=== PATIENT | female | born 1980 | race Caucasian/White ===

== ENCOUNTER → 2016-07-08 | Outpatient (CLI) | payer OTHER ==
--- NOTE | 2016-07-08 13:56 | REP ---
TRANSVAGINAL PELVIC ULTRASOUND WITH SONOHYSTEROGRAPHY: Transvaginal pelvic ultrasound performed. The uterus measures 7.8 x 5.4 x 5.7 cm. Endometrial stripe measures 5 mm. Posterior intramural fibroid measures 3.4 x 3.8 x 3.3 cm. Right ovary measures 3.1 x 1.7 x 2.3 cm and left ovary 3.0 x 2.5 x 2.6 cm. There is no adnexal mass or free fluid. There is blood flow seen in each ovary with duplex Doppler evaluation, with no torsion. RI of the right ovary 0.45 and left ovary 0.68. Cervix was catheterized and Dr. Calderon injected 120 mL of saline into the endometrial cavity. Ultrasound images were performed and demonstrate no evidence of endometrial polyp. The posterior fibroid does not protrude into the endometrial cavity. IMPRESSION: Posterior endometrial fibroid. No endometrial polyp. Signed by Denzel Whalen MD 07/08/2016 03:23 P
== END | disposition home or self-care (01) ==
LOC: M RADPRO 11:22
PROVIDERS: ATTEND Obstetrics & Gynecology
DX: D25.9 Leiomyoma of uterus, unspecified (principal)

== ENCOUNTER 2016-08-20 21:48 | Emergency (ER) | payer OTHER ==
[2016-08-20 22:22] LABS: MEAN CORPUSCULAR HEMOGLOBIN 32.6 pg (27.0-33.0); MEAN CORPUSCULAR HGB CONC 34.9 g/dl (32.0-36.5); MEAN CORPUSCULAR VOLUME 93.2 fl (80.0-96.0); RED CELL DISTRIBUTION WIDTH 11.7 % (11.5-14.5); WHITE BLOOD COUNT 10.5 K/mm3 (4.0-10.0)
[2016-08-20 22:33] LABS: INR 1.04
[2016-08-20 22:38] LABS: CONTROL LINE HCG INT CTR LINE PRESENT
--- NOTE | 2016-08-20 23:33 | EDDOCDS ---
Nurse's Notes [facility] Name: Sandi Urban Age: 36 yrs Sex: Female : 1980 Arrival Date: 08/20/2016 Time: 21:48 Bed PR1 / Private MD: Other - Complete Info On Cds Diagnosis: Dysmenorrhea, unspecified;Other abnormal uterine and vaginal bleeding Presentation: 08/20 21:54 Presenting complaint: Patient states: she is having vaginal bleeding started period cz yesterday heavy bleeding today with clots also having nausea and vomiting. Risk factors: The patient reports no loss of conciousness prior to arrival. This patient has not had a hysterectomy. This patient has not begun menopause. Adult Sepsis Screening: The patient does not have new or worsening altered mentation. Patient's respiratory rate is less than 22. Systolic blood pressure is greater than 100. Patient has a qSOFA score of 0- Negative Sepsis Screen. Suicide/Homicide risk assessment- the patient denies having any suicidal and/or homicidal ideations and does not present with any other emotional, behavioral or mental health complaints. Status: The patient is a dependent. Transition of care: patient was not received from another setting of care. 21:54 Acuity: BEV Level 3 cz 21:54 Method Of Arrival: Walkin/Carried/Asstd cz Triage Assessment: 21:56 General: Appears in no apparent distress. Pain: Location: pelvis Pain currently is 2 cz out of 10 on a pain scale. HIV screening NA for this visit Offered previously. 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 Vitamin Oral tab 1 tab once daily 2. Zoloft Oral 3. aspirin 81 mg Oral tab - PMHx: uterine fibroids; - PSHx: Tonsillectomy; D & C; - Social history: Smoking status: Patient uses tobacco products, light tobacco smoker. No barriers to communication noted, The patient speaks fluent Yoruba, Speaks appropriately for age. - Family history: Not pertinent. - : The pt / caregiver states he / she is not on anticoagulants. Home medication list is obtained from the patient. - Exposure Risk Screening:: None identified. Screenin:30 Screening information is obtained from the patient. Fall risk: No risks identified. ld5 Assistance ADL's: requires no assistance with activities of daily living. Abuse/DV Screen: The patient / caregiver reports he/she is: not in a situation that causes fear, pain or injury. Nutritional screening: No deficits noted. Advance Directives: Currently, there is no health care proxy. home support is adequate. Assessment: 23:30 General: Appears in no apparent distress, Behavior is cooperative. Pain: Location: ld5 suprapubic area Pain currently is 3 out of 10 on a pain scale. Neurological: Level of Consciousness is awake, alert. Respiratory: Airway is patent Respiratory effort is even, unlabored. GI: Denies nausea, vomiting. : Reports vaginal bleeding that is bright red heavy flow. Derm: Skin is intact, Skin is dry. Vital Signs: 21:50 BP 138 / 84; Pulse 100; Resp 18 S; Temp 97.6(O); Pulse Ox 99% on R/A; Weight 86.18 kg gr2 (R); Height 5 ft. 0 in. (152.40 cm) (R); Pain 3/10; 23:30 BP 135 / 71; Pulse 92; Resp 16; Temp 98.1; Pulse Ox 100% on R/A; ld5 21:50 Body Mass Index 37.11 (86.18 kg, 152.40 cm) gr2 Vitals: 21:50 Log In Time: August 20, 2016 at 21:50. gr2 ED Course: 21:49 Patient visited by Jhon Rain. gr2 21:49 Patient moved to Waiting gr2 21:50 Other - Complete Info On Cds is Private Physician. gr2 21:51 Patient visited by Jhon Rain. gr2 21:51 Patient moved to Pre RCE gr2 21:55 Triage Initiated cz 21:57 Patient moved to Triage 3 cz 22:03 [facility] ke 22:03 Patient visited by Bandar Lauren FNP. ke 22:03 Patient visited by Bandar Lauren FNP. ke 22:16 Patient moved to TR2 cz 22:19 PENDING SALE TO [facility] Payment Agreement was scanned into [employer] and attached to record. gjb 22:38 Patient visited by Bandar Lauren FNP. ke 23:17 Shelly Garza MD is Referral Physician. ke 23:25 Patient moved to PR1 / 25 cz 23:30 The patient / caregiver is instructed regarding the plan of care and ED course. Patient ld5 has correct armband on for positive identification. 23:30 No IV's were initiated during this patient's visit. No procedures done that require ld5 assistance. 23:32 Patient visited by Marcia Carvalho RN. ld5 Order Results: Lab Order: HCG,Serum Qualitative; [facility] 08/20/16 22:16 Test: HCG, SERUM QUALITATIVE; Value: NEGATIVE; Range: NEGATIVE; Status: F Lab Order: CBC; [facility] 08/20/16 22:16 Test: WHITE BLOOD COUNT; Value: 10.5; Range: 4.0-10.0; Abnormal: Above high normal; Units: K/mm3; Status: F Test: RED BLOOD COUNT; Value: 3.96; Range: 4.00-5.40; Abnormal: Below low normal; Units: M/mm3; Status: F Test: HEMOGLOBIN; Value: 12.9; Range: 12.0-16.0; Units: g/dl; Status: F Test: HEMATOCRIT; Value: 36.9; Range: 36.0-47.0; Units: %; Status: F Test: MEAN CORPUSCULAR VOLUME; Value: 93.2; Range: 80.0-96.0; Units: fl; Status: F Test: MEAN CORPUSCULAR HEMOGLOBIN; Value: 32.6; Range: 27.0-33.0; Units: pg; Status: F Test: MEAN CORPUSCULAR HGB CONC; Value: 34.9; Range: 32.0-36.5; Units: g/dl; Status: F Test: RED CELL DISTRIBUTION WIDTH; Value: 11.7; Range: 11.5-14.5; Units: %; Status: F Test: PLATELET COUNT, AUTOMATED; Value: 416; Range: 150-450; Units: k/mm3; Status: F Lab Order: PT/INR; [facility] 08/20/16 22:16 Test: PROTHROMBIN TIME; Value: 13.7; Range: 12.3-14.5; Units: SECONDS; Status: F Test: INR; Value: 1.04; Status: F Test Note: ; THERAPUTIC HUMAN INR VALUES INDICATIONS NORMAL RANGES PROPHYLAXIS/TREATMENT OF: VENOUS THROMBOSIS 2.0-3.0 PULMONARY EMBOLISM 2.0-3.0 PREVENTION OF SYSTEMIC EMBOLISM FROM: TISSUE HEART VALVES 2.0-3.0 ACUTE MYOCARDIAL INFARCTION 2.0-3.0 VALVULAR HEART DISEASE 2.0-3.0 ATRIAL FIBRILLATION 2.0-3.0 MECHANICAL VALVES(HIGH RISK) 2.5-3.5 RECURRENT MYOCARDIAL INFARCTION 2.5-3.5 Outcome: 23:19 Discharge ordered by Provider. karl 23:30 Discharge Assessment: Patient awake, alert and oriented x 3. No cognitive and/or ld5 functional deficits noted. Patient verbalized understanding of disposition instructions. patient administered narcotics - no. The following High Risk Discharge criteria are identified: None. Discharged to home ambulatory, with significant other. Condition: stable. Discharge instructions given to patient, Instructed on discharge instructions, follow up and referral plans. medication usage, no driving heavy equipment, Demonstrated understanding of instructions, medications, Pt was receptive of discharge instructions/ teaching. Prescriptions given X 1. No special radiology studies were completed. Property :Personal belongings accompany Pt. 23:32 Patient left the ED. ld5 Signatures: Parkash aRy, RN RN Bandar Branch, PUBLIC FINANCE SPECIALIST PUBLIC FINANCE SPECIALIST Marcia Falcon RN RN ld5 Jhon Rain 2 Jeanette Quigley BINU
--- NOTE | 2016-08-20 23:33 | EDDOCDS ---
Physician Documentation [facility] Name: Sandi Urban Age: 36 yrs Sex: Female : 1980 Arrival Date: 08/20/2016 Time: 21:48 Bed PR Private MD: Other - Complete Info On Cds Disposition: 08/20 23:20 A printed prescription for a controlled substance(s) was [facility]. Disposition: 08/20/16 23:19 Discharged to Home/Self Care. Impression: Dysmenorrhea, unspecified, Other abnormal uterine and vaginal bleeding. - Condition is Stable. - Discharge Instructions: Metrorrhagia, Uterine Bleeding, Dysfunctional. - Prescriptions for Ultram 50 mg Oral Tablet - take 1 tablet by ORAL route every 6 hours As needed MDD: 4 tabs; 20 tablet. - Medication Reconciliation, Local Pharmacy Hours form. - Follow up: Shelly Garza MD; When: 2 - 3 days; Reason: Recheck today's complaints, Continuance of care. - Problem is an ongoing problem. - Symptoms are unchanged. Historical: - Home Meds: 1. Vitamin Oral tab 1 tab once daily 2. Zoloft Oral 3. aspirin 81 mg Oral tab - PMHx: uterine fibroids; - PSHx: Tonsillectomy; D & C; - Social history: Smoking status: Patient uses tobacco products, light tobacco smoker. No barriers to communication noted, The patient speaks fluent Monegasque, Speaks appropriately for age. - Family history: Not pertinent. - : The pt / caregiver states he / she is not on anticoagulants. Home medication list is obtained from the patient. - Exposure Risk Screening:: None identified. 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 0 in. (152.40 cm) (R); Pain 3/10; 23:30 BP 135 / 71; Pulse 92; Resp 16; Temp 98.1; Pulse Ox 100% on R/A; ld5 21:50 Body Mass Index 37.11 (86.18 kg, 152.40 cm) gr2 MDM: 22:10 HCG,Serum Qualitative Ordered. EDMS 22:10 CBC Ordered. EDMS 22:10 PT/INR Ordered. EDMS 22:17 Financial registration complete. gjb 22:19 [facility] Payment Agreement was scanned into [employer] and attached to record. gjb 23:15 CBC Reviewed. ke 23:15 HCG,Serum Qualitative Reviewed. ke 23:15 PT/INR Reviewed. ke Signatures: Dispatcher [employer] EDPrakash Watkins, RN RN Bandar Branch, BLOOD TESTER BLOOD TESTER Marcia FalconRN RN Jeanette Rider The chart was reviewed and I authenticate all verbal orders and agree with the evaluation and treatment provided.Attachments: 22:19 [facility] Payment Agreement gj MTDD
--- NOTE | 2016-08-23 00:33 | EDDOCDS ---
Physician Documentation [facility] Name: Sandi Urban Age: 36 yrs Sex: Female : 1980 Arrival Date: 08/20/2016 Time: 21:48 Bed PR Private MD: Other - Complete Info On Cds Disposition: 08/20 23:20 A printed prescription for a controlled substance(s) was [facility]. Disposition: 08/20/16 23:19 Discharged to Home/Self Care. Impression: Dysmenorrhea, unspecified, Other abnormal uterine and vaginal bleeding. - Condition is Stable. - Discharge Instructions: Metrorrhagia, Uterine Bleeding, Dysfunctional. - Prescriptions for Ultram 50 mg Oral Tablet - take 1 tablet by ORAL route every 6 hours As needed MDD: 4 tabs; 20 tablet. - Medication Reconciliation, Local Pharmacy Hours form. - Follow up: Shelly Garza MD; When: 2 - 3 days; Reason: Recheck today's complaints, Continuance of care. - Problem is an ongoing problem. - Symptoms are unchanged. Historical: - Home Meds: 1. Vitamin Oral tab 1 tab once daily 2. Zoloft Oral 3. aspirin 81 mg Oral tab - PMHx: uterine fibroids; - PSHx: Tonsillectomy; D & C; - Social history: Smoking status: Patient uses tobacco products, light tobacco smoker. No barriers to communication noted, The patient speaks fluent Kyrgyz, Speaks appropriately for age. - Family history: Not pertinent. - : The pt / caregiver states he / she is not on anticoagulants. Home medication list is obtained from the patient. - Exposure Risk Screening:: None identified. 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 0 in. (152.40 cm) (R); Pain 3/10; 23:30 BP 135 / 71; Pulse 92; Resp 16; Temp 98.1; Pulse Ox 100% on R/A; ld5 21:50 Body Mass Index 37.11 (86.18 kg, 152.40 cm) gr2 MDM: 22:10 HCG,Serum Qualitative Ordered. EDMS 22:10 CBC Ordered. EDMS 22:10 PT/INR Ordered. EDMS :17 Financial registration complete. gjb :19 [facility] Payment Agreement was scanned into [employer] and attached to record. gjb 23:15 CBC Reviewed. ke 23:15 HCG,Serum Qualitative Reviewed. ke 23:15 PT/INR Reviewed. ke 08/21 11:05 T-Sheet-- Draft Copy was scanned into [employer] and attached to record. gb Signatures: Dispatcher [employer] EDMS Prakash Ray, RN RN cz Verena Iabrra, Reg Reg Bandar Abad, CONCRETE CONVEYOR OPERATOR Marcia KeeRN RN ld5 Jeanette Quigley The chart was reviewed and I authenticate all verbal orders and agree with the evaluation and treatment provided.Attachments: 08/20 22:19 [facility] Payment Agreement [facility] 08/21 11:05 T-Sheet-- Draft Copy gb Chart Complete MTDD
--- NOTE | 2016-08-23 00:33 | EDDOCDS ---
Nurse's Notes [facility] Name: Sandi Urban Age: 36 yrs Sex: Female : 1980 Arrival Date: 08/20/2016 Time: 21:48 Bed PR1 / Private MD: Other - Complete Info On Cds Diagnosis: Dysmenorrhea, unspecified;Other abnormal uterine and vaginal bleeding Presentation: 08/20 21:54 Presenting complaint: Patient states: she is having vaginal bleeding started period cz yesterday heavy bleeding today with clots also having nausea and vomiting. Risk factors: The patient reports no loss of conciousness prior to arrival. This patient has not had a hysterectomy. This patient has not begun menopause. Adult Sepsis Screening: The patient does not have new or worsening altered mentation. Patient's respiratory rate is less than 22. Systolic blood pressure is greater than 100. Patient has a qSOFA score of 0- Negative Sepsis Screen. Suicide/Homicide risk assessment- the patient denies having any suicidal and/or homicidal ideations and does not present with any other emotional, behavioral or mental health complaints. Status: The patient is a dependent. Transition of care: patient was not received from another setting of care. 21:54 Acuity: BEV Level 3 cz 21:54 Method Of Arrival: Walkin/Carried/Asstd cz Triage Assessment: 21:56 General: Appears in no apparent distress. Pain: Location: pelvis Pain currently is 2 cz out of 10 on a pain scale. HIV screening NA for this visit Offered previously. 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 Vitamin Oral tab 1 tab once daily 2. Zoloft Oral 3. aspirin 81 mg Oral tab - PMHx: uterine fibroids; - PSHx: Tonsillectomy; D & C; - Social history: Smoking status: Patient uses tobacco products, light tobacco smoker. No barriers to communication noted, The patient speaks fluent Yoruba, Speaks appropriately for age. - Family history: Not pertinent. - : The pt / caregiver states he / she is not on anticoagulants. Home medication list is obtained from the patient. - Exposure Risk Screening:: None identified. Screenin:30 Screening information is obtained from the patient. Fall risk: No risks identified. ld5 Assistance ADL's: requires no assistance with activities of daily living. Abuse/DV Screen: The patient / caregiver reports he/she is: not in a situation that causes fear, pain or injury. Nutritional screening: No deficits noted. Advance Directives: Currently, there is no health care proxy. home support is adequate. Assessment: 23:30 General: Appears in no apparent distress, Behavior is cooperative. Pain: Location: ld5 suprapubic area Pain currently is 3 out of 10 on a pain scale. Neurological: Level of Consciousness is awake, alert. Respiratory: Airway is patent Respiratory effort is even, unlabored. GI: Denies nausea, vomiting. : Reports vaginal bleeding that is bright red heavy flow. Derm: Skin is intact, Skin is dry. Vital Signs: 21:50 BP 138 / 84; Pulse 100; Resp 18 S; Temp 97.6(O); Pulse Ox 99% on R/A; Weight 86.18 kg gr2 (R); Height 5 ft. 0 in. (152.40 cm) (R); Pain 3/10; 23:30 BP 135 / 71; Pulse 92; Resp 16; Temp 98.1; Pulse Ox 100% on R/A; ld5 21:50 Body Mass Index 37.11 (86.18 kg, 152.40 cm) gr2 Vitals: 21:50 Log In Time: August 20, 2016 at 21:50. gr2 ED Course: 21:49 Patient visited by Jhon Rain. gr2 21:49 Patient moved to Waiting gr2 21:50 Other - Complete Info On Cds is Private Physician. gr2 21:51 Patient visited by Jhon Rain. gr2 21:51 Patient moved to Pre RCE gr2 21:55 Triage Initiated cz 21:57 Patient moved to Triage 3 cz 22:03 Bnadar Lauren FNP [facility]. ke 22:03 Patient visited by Bandar Lauren FNP. ke 22:03 Patient visited by Bandar Lauren FNP. ke 22:16 Patient moved to TR2 cz 22:19 [facility] Payment Agreement was scanned into [employer] and attached to record. gjb 22:38 Patient visited by Bandar Lauren FNP. ke 23:17 Shelly Garza MD is Referral Physician. ke 23:25 Patient moved to PR1 / 25 cz 23:30 The patient / caregiver is instructed regarding the plan of care and ED course. Patient ld5 has correct armband on for positive identification. 23:30 No IV's were initiated during this patient's visit. No procedures done that require ld5 assistance. 23:32 Patient visited by Marcia Carvalho RN. ld5 08/21 11:05 T-Sheet-- Draft Copy was scanned into [employer] and attached to record. gb Order Results: Lab Order: HCG,Serum Qualitative; [facility] 08/20/16 22:16 Test: HCG, SERUM QUALITATIVE; Value: NEGATIVE; Range: NEGATIVE; Status: F Lab Order: CBC; [facility] 08/20/16 22:16 Test: WHITE BLOOD COUNT; Value: 10.5; Range: 4.0-10.0; Abnormal: Above high normal; Units: K/mm3; Status: F Test: RED BLOOD COUNT; Value: 3.96; Range: 4.00-5.40; Abnormal: Below low normal; Units: M/mm3; Status: F Test: HEMOGLOBIN; Value: 12.9; Range: 12.0-16.0; Units: g/dl; Status: F Test: HEMATOCRIT; Value: 36.9; Range: 36.0-47.0; Units: %; Status: F Test: MEAN CORPUSCULAR VOLUME; Value: 93.2; Range: 80.0-96.0; Units: fl; Status: F Test: MEAN CORPUSCULAR HEMOGLOBIN; Value: 32.6; Range: 27.0-33.0; Units: pg; Status: F Test: MEAN CORPUSCULAR HGB CONC; Value: 34.9; Range: 32.0-36.5; Units: g/dl; Status: F Test: RED CELL DISTRIBUTION WIDTH; Value: 11.7; Range: 11.5-14.5; Units: %; Status: F Test: PLATELET COUNT, AUTOMATED; Value: 416; Range: 150-450; Units: k/mm3; Status: F Lab Order: PT/INR; [facility] 08/20/16 22:16 Test: PROTHROMBIN TIME; Value: 13.7; Range: 12.3-14.5; Units: SECONDS; Status: F Test: INR; Value: 1.04; Status: F Test Note: ; THERAPUTIC HUMAN INR VALUES INDICATIONS NORMAL RANGES PROPHYLAXIS/TREATMENT OF: VENOUS THROMBOSIS 2.0-3.0 PULMONARY EMBOLISM 2.0-3.0 PREVENTION OF SYSTEMIC EMBOLISM FROM: TISSUE HEART VALVES 2.0-3.0 ACUTE MYOCARDIAL INFARCTION 2.0-3.0 VALVULAR HEART DISEASE 2.0-3.0 ATRIAL FIBRILLATION 2.0-3.0 MECHANICAL VALVES(HIGH RISK) 2.5-3.5 RECURRENT MYOCARDIAL INFARCTION 2.5-3.5 Outcome: 08/20 23:19 Discharge ordered by Provider. karl 23:30 Discharge Assessment: Patient awake, alert and oriented x 3. No cognitive and/or ld5 functional deficits noted. Patient verbalized understanding of disposition instructions. patient administered narcotics - no. The following High Risk Discharge criteria are identified: None. Discharged to home ambulatory, with significant other. Condition: stable. Discharge instructions given to patient, Instructed on discharge instructions, follow up and referral plans. medication usage, no driving heavy equipment, Demonstrated understanding of instructions, medications, Pt was receptive of discharge instructions/ teaching. Prescriptions given X 1. No special radiology studies were completed. Property :Personal belongings accompany Pt. 23:32 Patient left the ED. ld5 Signatures: Prakash Ray, RN RN cz Verena Ibarra, Dc Reg Bandar Abad, VISCOSE DEPARTMENT WORKER VISCOSE DEPARTMENT WORKER Marcia Falcon RN RN ld5 Jhon Rain gr2 Jeanette Quigley Chart Complete MTDD
--- NOTE | 2016-08-23 00:33 | EDDOCDS ---
Physician Documentation [facility] Name: Sandi Urban Age: 36 yrs Sex: Female : 1980 Arrival Date: 08/20/2016 Time: 21:48 Bed PR Private MD: Other - Complete Info On Cds Disposition: 08/20 23:20 A printed prescription for a controlled substance(s) was provided because [facility]. Disposition: 08/20/16 23:19 Discharged to Home/Self Care. Impression: Dysmenorrhea, unspecified, Other abnormal uterine and vaginal bleeding. - Condition is Stable. - Discharge Instructions: Metrorrhagia, Uterine Bleeding, Dysfunctional. - Prescriptions for Ultram 50 mg Oral Tablet - take 1 tablet by ORAL route every 6 hours As needed MDD: 4 tabs; 20 tablet. - Medication Reconciliation, Local Pharmacy Hours form. - Follow up: Shelly Garza MD; When: 2 - 3 days; Reason: Recheck today's complaints, Continuance of care. - Problem is an ongoing problem. - Symptoms are unchanged. Historical: - Home Meds: 1. Vitamin Oral tab 1 tab once daily 2. Zoloft Oral 3. aspirin 81 mg Oral tab - PMHx: uterine fibroids; - PSHx: Tonsillectomy; D & C; - Social history: Smoking status: Patient uses tobacco products, light tobacco smoker. No barriers to communication noted, The patient speaks fluent Vincentian, Speaks appropriately for age. - Family history: Not pertinent. - : The pt / caregiver states he / she is not on anticoagulants. Home medication list is obtained from the patient. - Exposure Risk Screening:: None identified. 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 0 in. (152.40 cm) (R); Pain 3/10; 23:30 BP 135 / 71; Pulse 92; Resp 16; Temp 98.1; Pulse Ox 100% on R/A; ld5 21:50 Body Mass Index 37.11 (86.18 kg, 152.40 cm) gr2 MDM: 22:10 HCG,Serum Qualitative Ordered. EDMS 22:10 CBC Ordered. EDMS 22:10 PT/INR Ordered. EDMS :17 Financial registration complete. gjb :19 [facility] Payment Agreement was scanned into [employer] and attached to record. gjb 23:15 CBC Reviewed. ke 23:15 HCG,Serum Qualitative Reviewed. ke 23:15 PT/INR Reviewed. ke 08/21 11:05 T-Sheet-- Draft Copy was scanned into [employer] and attached to record. gb Signatures: Dispatcher [employer] EDMS Prakash Ray, RN RN cz Verena Ibarra, Reg Reg Bandar Abad, DIRECTOR FINANCIAL SERVICES Marcia KeeRN RN ld5 Jenaette Quigley The chart was reviewed and I authenticate all verbal orders and agree with the evaluation and treatment provided.Attachments: 08/20 22:19 [facility] Payment Agreement [facility] 08/21 11:05 T-Sheet-- Draft Copy gb Chart Complete MTDD
== END 2016-08-20 23:32 | disposition home or self-care (01) ==
LOC: M ED 21:48
DX: N94.6 Dysmenorrhea, unspecified (principal); N92.0 Excessive and frequent menstruation with regular cycle; D25.9 Leiomyoma of uterus, unspecified; Z72.0 Tobacco use; Z79.82 Long term (current) use of aspirin; Z79.899 Other long term (current) drug therapy

== ENCOUNTER 2016-11-25 17:00 | Day surgery (SDC) | payer OTHER ==
[~2016-11-25] VITALS: Ht 152.4 cm; Wt 86.2 kg
[2016-11-25] MEDS ORDERED: PREN1PAK PO (17:09)
[2016-11-25] MEDS ORDERED: ZOLO100T PO (17:09)
[2016-11-25] MEDS ORDERED: ASPI1TAB PO (17:09)
[2016-11-25 19:06] LABS: MEAN CORPUSCULAR HEMOGLOBIN 33.1 pg (27.0-33.0); MEAN CORPUSCULAR HGB CONC 34.9 g/dl (32.0-36.5); MEAN CORPUSCULAR VOLUME 94.8 fl (80.0-96.0); RED CELL DISTRIBUTION WIDTH 12.6 % (11.5-14.5); WHITE BLOOD COUNT 12.6 K/mm3 (4.0-10.0)
[2016-11-25 19:18] LABS: CONTROL LINE HCG INT CTR LINE PRESENT
[2016-11-25 19:58] LABS: HCG, SERUM QUANTITATIVE 799 MIU/ML
--- NOTE | 2016-11-25 19:59 | REP ---
Clinical: Suspected miscarriage with increasing HCG levels. Technique: Transabdominal and transvaginal first trimester obstetrical ultrasound with color Doppler evaluation. Findings: Heterogeneous anteverted uterus measures 8.9 x 6.5 x 6.0 cm and includes a 4 cm posterior submucosal complex degenerating fibroid. There is no evidence for intrauterine . Moderate amount of complex, possibly hemorrhagic free fluid is identified in the pelvis. The bilateral ovaries are normal in vascularity without torsion. The right ovary measures 4.6 x 2.8 x 2.6 cm and includes a complex hemorrhagic cyst measuring 2.3 cm likely corpus luteum; RI = 0.55. The left ovary measures 3.3 x 2.3 x 1.5 cm; RI = 0.57. Adjacent to the left ovary is a 1.3 by 1.0 x 1.0 cm hyperechoic mass concerning for ectopic . Impression: 1. 1.3 cm hyperechoic mass adjacent to the left ovary along with complex possibly hemorrhagic free fluid in the pelvis and elevated HCG level highly suspicious for ectopic . 2. The bilateral ovaries are identified and demonstrate normal vascularity without torsion. 3. 4 cm degenerating posterior submucosal fibroid, and no evidence for intrauterine . Signed by Mal Walls MD 11/25/2016 07:51 P
[2016-11-25] MEDS ORDERED: NS 1,000 ML IV SCH (21:03)
[2016-11-25] MEDS ORDERED: BUPIVACAINE HCL 0.25% 30 ML VIAL As Ordered ONE (22:01)
[2016-11-25] MEDS ORDERED: ASPI81TAEC PO (22:11)
[2016-11-25] MEDS ORDERED: MULTTAB20 PO (22:11)
[2016-11-25] MEDS ORDERED: LIDOCAINE 2% INJ 100 MG/5 ML SDV (FOR ANES.) As Ordered ONE (22:12)
[2016-11-25] MEDS ORDERED: PROPOFOL 200 MG/20 ML VIAL As Ordered ONE (22:12)
[2016-11-25] MEDS ORDERED: ROCURONIUM BROMIDE 50 MG/5 ML VIAL As Ordered ONE (22:12)
[2016-11-25] MEDS ORDERED: SUCCINYLCHOLINE 100 MG/5 ML SYRINGE (J0330) As Ordered ONE (22:12)
[2016-11-25] MEDS ORDERED: MIDAZOLAM INJ 2 MG/2 ML VIAL (J2250) As Ordered ONE (22:17)
[2016-11-25] MEDS ORDERED: fentaNYL 100 MCG/2 ML INJECTION (J3010) As Ordered ONE ×3 (22:17→23:59)
[2016-11-25] MEDS ORDERED: NEOSTIGMINE 1MG/ML 5 ML SYRINGE (J2710) As Ordered ONE (22:53)
[2016-11-25] MEDS ORDERED: ONDANSETRON 4MG/2ML VIAL (J2405) As Ordered ONE (22:53)
[2016-11-25] MEDS ORDERED: GLYCOPYRROLATE INJ 0.2 MG/ML 2 ML VIAL As Ordered ONE (22:53)
[2016-11-25] MEDS ORDERED: METOCLOPRAMIDE INJ 10MG/2ML VIAL (J2765) As Ordered ONE (22:53)
[2016-11-25] MEDS ORDERED: SEVOFLURANE INHAL SOLN 250 ML BTL As Ordered ONE (23:06)
[2016-11-25] MEDS ORDERED: DESFLURANE 240 ML INHALANT As Ordered ONE (23:09)
[2016-11-25] MEDS ORDERED: KETOROLAC 60 MG/2 ML VIAL (J1885) As Ordered ONE (23:33)
[2016-11-25] MEDS: fentaNYL 100 MCG/2 ML INJECTION (J3010) IV PRN (23:57)
[2016-11-25] MEDS ORDERED: PERCOCET 5MG/325MG TAB As Ordered ONE (23:59)
[2016-11-26] MEDS: fentaNYL 100 MCG/2 ML INJECTION (J3010) IV PRN ×2 (00:05→00:11)
[2016-11-26] MEDS ORDERED: ONDANSETRON 4MG/2ML VIAL (J2405) IV PRN (00:15)
[2016-11-26] MEDS ORDERED: PERCOCET 5MG/325MG TAB PO PRN (00:15)
[2016-11-26] MEDS ORDERED: LR 1,000 ML IV SCH ×2 (00:15→02:30)
[2016-11-26] MEDS ORDERED: ONDANSETRON 4MG/2ML VIAL (J2405) As Ordered ONE (00:17)
[2016-11-26 00:45] VITALS: BP 124/72
[2016-11-26 01:15] VITALS: BP 112/71
[2016-11-26 02:15] VITALS: BP 106/55
== END 2016-11-26 07:40 | disposition home or self-care (01) ==
LOC: M ED 18:39 → M PED 11-26 00:59 → M OROP 11-26 03:05 → M ED 11-26 03:05 → M PED 11-26 03:11 → M OROP 11-26 07:40
PROVIDERS: ATTEND Obstetrics & Gynecology
DX: O00.10 Tubal pregnancy without intrauterine pregnancy (principal); F41.9 Anxiety disorder, unspecified; F32.9 Major depressive disorder, single episode, unspecified; Z79.82 Long term (current) use of aspirin
CPT/HCPCS: 59151; 76801; 76817; 84702; 84703; 85027; 86850; 86900; 86901; 88305; 93041; 94760; 99284; J0330; J1885; J2250; J2405; J2710; J2765; J3010

== ENCOUNTER 2016-11-29 14:02 | Emergency (ER) | payer OTHER ==
[~2016-11-29] VITALS: Ht 152.4 cm; Wt 86.2 kg
[~2016-11-29 14:02] MED LIST: ASPI1TAB PO; ASPI81TAEC PO; MULTTAB20 PO; PREN1PAK PO; ZOLO100T PO
[2016-11-29] MEDS ORDERED: OXYC1TAB23 PO (14:13)
[2016-11-29] MEDS ORDERED: IBUP600T26 PO (14:13)
[2016-11-29] MEDS ORDERED: MUCI1TAB18 PO (14:13)
[2016-11-29] MEDS ORDERED: MECLIZINE 25 MG TABLET PO ONE ×2 (14:30→17:00)
[2016-11-29] MEDS ORDERED: NS 500 ML IV ONE (14:30)
[2016-11-29] MEDS ORDERED: ONDANSETRON 4MG/2ML VIAL (J2405) IV ONE (14:30)
[2016-11-29 15:07] LABS: BASO % 0.3 % (0.0-1.0); EOS # 0.3 K/mm3 (0.0-0.50); EOS % 2.4 % (0.0-3.0); LARGE UNSTAINED CELL # 0.2 K/mm3 (0.0-0.4); LARGE UNSTAINED CELL % 1.3 % (0.0-4.0); LYMPH % 25.2 % (24.0-44.0); MEAN CORPUSCULAR HEMOGLOBIN 32.7 pg (27.0-33.0); MEAN CORPUSCULAR HGB CONC 34.6 g/dl (32.0-36.5); MEAN CORPUSCULAR VOLUME 94.5 fl (80.0-96.0); MONO # 0.6 K/mm3 (0.0-0.8); MONO % 5.8 % (0.0-5.0); NEUTROPHILS # 7.3 K/mm3 (1.8-7.7); NEUTROPHILS % 65.2 % (36.0-66.0); PLATELET COUNT, AUTOMATED 360 k/mm3 (150-450); RED CELL DISTRIBUTION WIDTH 12.5 % (11.5-14.5); WHITE BLOOD COUNT 11.2 K/mm3 (4.0-10.0)
[2016-11-29 15:25] LABS: ANION GAP 7 MEQ/L (8-16); BLOOD UREA NITROGEN 10 MG/DL (7-18); CARBON DIOXIDE LEVEL 25 MEQ/L (21-32); CHLORIDE LEVEL 108 MEQ/L (98-107); CREATININE FOR GFR 0.47 MG/DL (0.55-1.02); GLOMERULAR FILTRATION RATE > 60.0 (>60); GLUCOSE, FASTING 89 MG/DL (70-105); POTASSIUM SERUM 3.9 MEQ/L (3.5-5.1); SODIUM LEVEL 140 MEQ/L (136-145)
[2016-11-29] MEDS ORDERED: ZOFR4TAB3 PO (16:48)
[2016-11-29] MEDS ORDERED: MECL-68 PO (16:48)
[2016-11-29 17:00] VITALS: BP 109/72
[2016-11-29] MEDS ORDERED: ONDANSETRON 4 MG ORAL DISINTEGRATING TAB (S0181) PO ONE (17:00)
== END 2016-11-29 17:07 | disposition home or self-care (01) ==
LOC: M ED 14:41
DX: R42 Dizziness and giddiness (principal); Z87.59 Personal history of other complications of pregnancy, childbirth and the puerperium; F41.9 Anxiety disorder, unspecified; F17.200 Nicotine dependence, unspecified, uncomplicated; Z79.82 Long term (current) use of aspirin; Z79.899 Other long term (current) drug therapy
CPT/HCPCS: 80048; 81001; 85025; 96361; 96374; 99283; J2405

== ENCOUNTER 2017-07-02 17:51 | Emergency (ER) | payer OTHER ==
[2017-07-02] MEDS: ACETAMINOPHEN 325 MG TAB PO (19:43)
[2017-07-02 20:13] LABS: CONTROL LINE HCG INT CTR LINE PRESENT
== END 2017-07-02 21:50 | disposition home or self-care (01) ==
LOC: M ED 17:51
DX: R51 Headache (principal); N93.9 Abnormal uterine and vaginal bleeding, unspecified; F41.9 Anxiety disorder, unspecified; Z79.82 Long term (current) use of aspirin; Z79.899 Other long term (current) drug therapy
CPT/HCPCS: 84703

== ENCOUNTER 2017-07-22 15:14 | Emergency (ER) | payer OTHER ==
[2017-07-22] MEDS: ACETAMINOPHEN 325 MG TAB PO (17:32)
== END 2017-07-22 18:01 | disposition home or self-care (01) ==
LOC: M ED 15:14
DX: S93.401A Sprain of unspecified ligament of right ankle, initial encounter (principal); W19.XXXA Unspecified fall, initial encounter; Y92.89 Other specified places as the place of occurrence of the external cause; Y93.9 Activity, unspecified; F17.200 Nicotine dependence, unspecified, uncomplicated; Z79.82 Long term (current) use of aspirin; Z79.899 Other long term (current) drug therapy
CPT/HCPCS: 73610

== ENCOUNTER → 2017-07-29 | Outpatient (CLI) | payer OTHER | LOC: M LRY 19:27 | DX: S99.911A Unspecified injury of right ankle, initial encounter (principal); R60.0 Localized edema; X58.XXXA Exposure to other specified factors, initial encounter; Y92.9 Unspecified place or not applicable; Y93.9 Activity, unspecified | CPT/HCPCS: G0463 ==

== ENCOUNTER 2017-10-26 08:42 | Inpatient (IN) | payer OTHER ==
[~2017-10-26 08:42] MED LIST changes: -ASPI1TAB PO; -ASPI81TAEC PO; +KETOROLAC 60 MG/2 ML VIAL (J1885) As Ordered; +LIDOCAINE 2% INJ 100 MG/5 ML SDV (FOR ANES.) As Ordered; +MIDAZOLAM INJ 2 MG/2 ML VIAL (J2250) As Ordered; -MULTTAB20 PO; +ONDANSETRON 4MG/2ML VIAL (J2405) As Ordered; -PREN1PAK PO; +PROPOFOL 200 MG/20 ML VIAL As Ordered; +ROCURONIUM BROMIDE 50 MG/5 ML VIAL As Ordered; -ZOLO100T PO; +dexameTHASONE 4 MG/ML 1ML VIAL (J1100) As Ordered; +fentaNYL 100 MCG/2 ML INJECTION (J3010) As Ordered
[2017-10-26] MEDS ORDERED: LR 1,000 ML IV (09:00)
[2017-10-26 09:31] LABS: CONTROL LINE HCG INT CTR LINE PRESENT; HCG, SERUM QUALITATIVE NEGATIVE (NEGATIVE)
[2017-10-26 09:37] LABS: HEMATOCRIT 38.5 % (36.0-47.0); MEAN CORPUSCULAR HEMOGLOBIN 30.9 pg (27.0-33.0); MEAN CORPUSCULAR HGB CONC 33.8 g/dl (32.0-36.5); MEAN CORPUSCULAR VOLUME 91.4 fl (80.0-96.0); PLATELET COUNT, AUTOMATED 388 10^3/uL (150-450); RED BLOOD COUNT 4.21 10^6/uL (4.00-5.40); RED CELL DISTRIBUTION WIDTH 11.7 % (11.5-14.5); WHITE BLOOD COUNT 8.3 10^3/uL (4.0-10.0)
[2017-10-26] MEDS ORDERED: fentaNYL 100 MCG/2 ML INJECTION (J3010) As Ordered (13:05)
[2017-10-26] MEDS ORDERED: ROCURONIUM BROMIDE 50 MG/5 ML VIAL As Ordered (13:28)
[2017-10-26] MEDS ORDERED: HYDROmorphone HCL 2 MG/ML 1ML VIAL (J1170) As Ordered (13:44)
[2017-10-26] MEDS ORDERED: PROPOFOL 200 MG/20 ML VIAL As Ordered (14:20)
[2017-10-26] MEDS: VASOPRESSIN INJ 20 UNITS/ML VIAL As Ordered (14:20)
[2017-10-26] MEDS: BUPIVACAINE LIPOSOME/PF 1.3% 20 ML VIAL (13.3MG/ML)(EXPAREL) As Ordered (14:57)
[2017-10-26] MEDS: KETOROLAC 30 MG/ML VIAL (J1885) IV ×2 (15:00→20:29)
[2017-10-26] MEDS ORDERED: ONDANSETRON 4MG/2ML VIAL (J2405) IV ×2 (15:15→15:30)
[2017-10-26] MEDS ORDERED: PROMETHAZINE INJ 25 MG/ML VIAL (J2550) IV (15:15)
[2017-10-26] MEDS: fentaNYL 100 MCG/2 ML INJECTION (J3010) IV ×4 (15:27→15:42)
[2017-10-26] MEDS: LR 1,000 ML IV ×3 (15:30→23:10)
[2017-10-26] MEDS ORDERED: HYDROmorphone HCL 1 MG/ML SYRINGE (J1170) IV (15:30)
[2017-10-26] MEDS: PERCOCET 5MG/325MG TAB PO ×3 (15:42→20:31)
[2017-10-26] MEDS: DOCUSATE SODIUM 100 MG CAP PO (20:29)
[2017-10-27] MEDS: PERCOCET 5MG/325MG TAB PO ×3 (00:46→14:38)
[2017-10-27] MEDS: KETOROLAC 30 MG/ML VIAL (J1885) IV (03:13)
[2017-10-27 06:54] LABS: BASO % 0.1 % (0.0-1.0); EOS % 0.1 % (0.0-3.0); HEMATOCRIT 32.1 % (36.0-47.0); IMMATURE GRANULOCYTE % 0.3 % (0-3.0); LYMPH # 2.4 10^3/uL (1.5-4.5); LYMPH % 17.7 % (24.0-44.0); MEAN CORPUSCULAR HEMOGLOBIN 31.5 pg (27.0-33.0); MEAN CORPUSCULAR HGB CONC 34.3 g/dl (32.0-36.5); MONO # 1.3 10^3/uL (0.0-0.8); MONO % 9.7 % (0.0-5.0); NEUTROPHILS % 72.1 % (36.0-66.0); PLATELET COUNT, AUTOMATED 309 10^3/uL (150-450); RED BLOOD COUNT 3.49 10^6/uL (4.00-5.40); RED CELL DISTRIBUTION WIDTH 11.7 % (11.5-14.5); WHITE BLOOD COUNT 13.8 10^3/uL (4.0-10.0)
[2017-10-27] MEDS: LR 1,000 ML IV (07:10)
[2017-10-27] MEDS: DOCUSATE SODIUM 100 MG CAP PO (08:07)
[2017-10-27] MEDS: IBUPROFEN 800 MG TAB PO (10:07)
== END 2017-10-27 14:55 | disposition home or self-care (01) | DRG 743 ==
LOC: M OR 08:42 → M PED 16:13
PROC: 0UB90ZZ Excision of Uterus, Open Approach (ICD-10-PCS; principal; 2017-10-26 11:00)
DX: D25.9 Leiomyoma of uterus, unspecified (principal); N93.9 Abnormal uterine and vaginal bleeding, unspecified

== ENCOUNTER 2024-05-30 06:05 | Day surgery (SDC) | payer OTHER ==
[~2024-05-30] VITALS: Ht 152.4 cm; Wt 81.5 kg
[~2024-05-30 06:05] MED LIST changes: +ASPI-569 PO; +ASPI81TA26 PO; +BENA25CA4 PO; +CLOM50TA9; +COLA100C5 PO; +FERR29TA PO; +IBUP-1022 PO; -KETOROLAC 60 MG/2 ML VIAL (J1885) As Ordered; -LIDOCAINE 2% INJ 100 MG/5 ML SDV (FOR ANES.) As Ordered; +MECL-209 PO; -MIDAZOLAM INJ 2 MG/2 ML VIAL (J2250) As Ordered; +MOTR200T44 PO; +MUCI1TAB18 PO; +MULTTAB20 PO; -ONDANSETRON 4MG/2ML VIAL (J2405) As Ordered; +OXYC1TAB23 PO; +PREN1PAK PO; -PROPOFOL 200 MG/20 ML VIAL As Ordered; +RIGHTAB2; -ROCURONIUM BROMIDE 50 MG/5 ML VIAL As Ordered; +ZOFR4TAB14 PO; +ZOLO100T PO; -dexameTHASONE 4 MG/ML 1ML VIAL (J1100) As Ordered; -fentaNYL 100 MCG/2 ML INJECTION (J3010) As Ordered
[2024-05-30] MEDS: metroNIDAZOLE 500 MG in IV 1 EA IV ONE (07:08)
[2024-05-30] MEDS: ACETAMINOPHEN 500 MG TAB PO ONE (07:08)
[2024-05-30 07:18] LABS: HEMATOCRIT 38.5 % (36.0-47.0); HEMOGLOBIN 13.3 g/dl (12.0-15.5); MEAN CORPUSCULAR HEMOGLOBIN 32.4 pg (27.0-33.0); MEAN CORPUSCULAR HGB CONC 34.5 g/dl (32.0-36.5); MEAN CORPUSCULAR VOLUME 93.7 fl (80.0-96.0); PLATELET COUNT, AUTOMATED 378 10^3/uL (150-450); RED BLOOD COUNT 4.11 10^6/uL (4.00-5.40); WHITE BLOOD COUNT 8.3 10^3/uL (4.0-10.0)
[2024-05-30] MEDS ORDERED: propofoL 200 MG/20 ML VIAL As Ordered ONE (07:24)
[2024-05-30] MEDS ORDERED: ROCURONIUM BROMIDE 50MG/5ML VIAL As Ordered ONE (07:24)
[2024-05-30] MEDS ORDERED: LIDOCAINE 2% 100MG/5ML SDV (FOR ANES.) As Ordered ONE (07:24)
[2024-05-30] MEDS ORDERED: dexmedeTOMIDine (4MCG/ML)200MCG/50ML BTL (PRECEDEX) As Ordered ONE (07:24)
[2024-05-30] MEDS ORDERED: MIDAZOLAM INJ 2MG/2ML VIAL As Ordered ONE (07:24)
[2024-05-30] MEDS ORDERED: fentaNYL 250 MCG/5 ML INJECTION As Ordered ONE (07:24)
[2024-05-30] MEDS ORDERED: ONDANSETRON 4MG 2ML VIAL As Ordered ONE (07:24)
[2024-05-30] MEDS: ceFAZolin SOD 2 GM in IV 1 EA IV ONE (08:07)
[2024-05-30] MEDS ORDERED: LACRILUBE (AKWA TEARS) OPHTH OINT 3.5GM As Ordered ONE (08:30)
[2024-05-30] MEDS ORDERED: ePHEDrine SULFATE 25 MG/5 ML(5MG/ML) SYRINGE As Ordered ONE (08:30)
[2024-05-30] MEDS ORDERED: SUGAMMADEX SODIUM 500 MG/5 ML VIAL (BRIDION) As Ordered ONE (08:47)
[2024-05-30] MEDS ORDERED: KETOROLAC 60MG 2ML VIAL As Ordered ONE (08:47)
[2024-05-30] MEDS ORDERED: oxyCODONE 5MG TAB PO PRN (09:05)
[2024-05-30] MEDS ORDERED: ONDANSETRON 4MG 2ML VIAL IV PRN (09:05)
[2024-05-30] MEDS ORDERED: MEPERIDINE 25 MG/ML 1ML VIAL IV PRN (09:05)
[2024-05-30] MEDS ORDERED: fentaNYL 100 MCG/2 ML INJECTION IV PRN (09:05)
[2024-05-30] MEDS ORDERED: HYDROMORPHONE HCL 0.5 MG/ 0.5 ML SYRINGE IV PRN (09:05)
[2024-05-30] MEDS ORDERED: METOCLOPRAMIDE INJ 10MG/2ML VIAL IV PRN (09:05)
[2024-05-30] MEDS ORDERED: diphenhydrAMINE 50MG/ML VIAL IV PRN (09:05)
[2024-05-30 11:30] VITALS: BP 141/98; TEMP 97.3; O2SAT 97
== END 2024-05-30 11:41 | disposition home or self-care (01) ==
LOC: M SDC 06:05
PROVIDERS: ATTEND Student in an Organized Health Care Education/Training Program
DX: N93.9 Abnormal uterine and vaginal bleeding, unspecified (principal); R10.2 Pelvic and perineal pain; K66.0 Peritoneal adhesions (postprocedural) (postinfection); N83.291 Other ovarian cyst, right side
CPT/HCPCS: 36415; 49320; 58301; 81001; 81025; 85027; 86850; 86900; 86901; A6024; J0665; J0690; J1100; J1836; J1885; J2250; J2405; J3010

== ENCOUNTER → 2024-08-01 | Outpatient (CLI) | payer OTHER | LOC: M WHC 08:55 | PROVIDERS: ATTEND Student in an Organized Health Care Education/Training Program | DX: N64.4 Mastodynia (principal); N63.21 Unspecified lump in the left breast, upper outer quadrant | CPT/HCPCS: 76642; 77066; G0279 ==

== ENCOUNTER → 2024-11-06 | Outpatient (CLI) | payer OTHER | LOC: M WHC 10:07 | PROVIDERS: ATTEND Family Medicine | DX: R92.2 Inconclusive mammogram (principal); N63.21 Unspecified lump in the left breast, upper outer quadrant | CPT/HCPCS: 76642; 77065; G0279 ==

== ENCOUNTER → 2025-02-12 | Outpatient (CLI) | payer OTHER ==
[~2025-02-12] MED LIST changes: +CLOM50TA31; -CLOM50TA9; -IBUP-1022 PO; +IBUP600T42 PO
== END ==
LOC: M WHC 10:06
PROVIDERS: ATTEND Internal Medicine
DX: N61.1 Abscess of the breast and nipple (principal)